=== PATIENT | female | born 1935 | race Caucasian/White ===

== ENCOUNTER → 2017-02-04 | Outpatient (REF) ==
[~2017-02-04] MED LIST: ALEVE 220MG220 MG PO; ASPIRIN E.C. 8181 MG PO; BENICAR; CALCIUM1 CAP PO; FISH OIL1000 MG PO; FISH OIL500 MG PO; IRON324 M1 PO; MULTIPLE VITAMI1 CAP PO; NORCO 325 MG-7.1 TAB PO; OSTEO-BI-FLEX 21 TAB; PRINZIDE 12.5 M1 TA1 PO; TOPROL XL 50MG50 MG PO; TYLENOL 500MG500 MG PO; VITAMIN C BUFF500 MG PO; VITAMIN E28000 IU TP; ZOCOR; ZOCOR 80MG80 MG PO; [UNRECOGNIZED DRUG - OTHER] PO
[2017-02-04 12:41] LABS: C-REACTIVE PROTEIN 0.6 mg/dL (0.0-0.9)
[2017-02-04 13:09] LABS: THYROID STIMULATING HORMONE 3.2 uIU/mL (0.465-4.680)
== END ==
LOC: ZLAB.WCH 11:15
PROVIDERS: Medical Genetics Clinical Genetics (M.D.)
DX: Z01.89 Encounter for other specified special examinations (principal)

== ENCOUNTER → 2017-02-08 | Outpatient (REF) | LOC: ZLAB.WCH 10:46 | DX: Z01.89 Encounter for other specified special examinations (principal) ==

== ENCOUNTER → 2017-08-11 | Outpatient (REF) | LOC: ZLAB.WCH 18:04 | DX: Z01.89 Encounter for other specified special examinations (principal) ==

== ENCOUNTER → 2018-10-05 | Outpatient (REF) | LOC: ZLAB.WCH 18:09 | DX: Z01.89 Encounter for other specified special examinations (principal) ==

== ENCOUNTER → 2018-10-05 | Outpatient (REF) | LOC: ZLAB.WCH 08:59 | DX: Z01.89 Encounter for other specified special examinations (principal) ==

== ENCOUNTER → 2018-10-09 | Outpatient (REF) | LOC: ZLAB.WCH 15:58 | DX: Z01.89 Encounter for other specified special examinations (principal) ==

== ENCOUNTER → 2018-10-12 | Outpatient (REF) | LOC: ZLAB.WCH 16:25 | DX: Z01.89 Encounter for other specified special examinations (principal) ==

== ENCOUNTER → 2018-11-18 | Outpatient (REF) ==
[2018-11-18 19:57] LABS: THYROID STIMULATING HORMONE 4.11 uIU/mL (0.465-4.680)
== END ==
LOC: ZLAB.WCH 18:30
PROVIDERS: Psychiatry & Neurology Neurology
DX: Z01.89 Encounter for other specified special examinations (principal)

== ENCOUNTER → 2019-01-01 | Outpatient (REF) | LOC: ZLAB.WCH 08:27 | DX: Z01.89 Encounter for other specified special examinations (principal) ==

== ENCOUNTER → 2019-01-01 | Outpatient (REF) ==
[2019-01-01 16:28] LABS: IRON,SERUM 54 ug/dL (35-150)
[2019-01-01 17:04] LABS: FERRITIN 72 ng/mL (11-264)
== END ==
LOC: ZLAB.WCH 16:16
PROVIDERS: Family Medicine
DX: Z01.89 Encounter for other specified special examinations (principal)

== ENCOUNTER → 2019-01-07 | Outpatient (REF) | LOC: ZLAB.WCH 18:13 | DX: Z01.89 Encounter for other specified special examinations (principal) ==

== ENCOUNTER → 2019-01-13 | Outpatient (REF) | LOC: ZLAB.WCH 18:10 | DX: Z01.89 Encounter for other specified special examinations (principal) ==

== ENCOUNTER → 2019-04-19 | Outpatient (REF) | LOC: ZLAB.WCH 19:49 | DX: Z01.89 Encounter for other specified special examinations (principal) ==